=== PATIENT | female | born 1950 | race Caucasian/White ===

== ENCOUNTER 2017-02-04 09:26 | Day surgery (SDC) | payer MEDICARE, OTHER ==
[~2017-02-04 09:26] MED LIST: RINGER'S SOLUTION,LACTATED 1,000 ML IV PRN; ceFAZolin SODIUM 1 GM VIAL IV PRN
[2017-02-04] MEDS ORDERED: RINGER'S SOLUTION,LACTATED 1,000 ML IV ONE (10:45)
--- NOTE | 2017-02-04 12:25 | OR ---
Operative Report - Dictated Report Narrative: Date: 02/04/2017 Surgeon: Abel Sanchez M.D. Automatic Packer Operator: Bobby Billingsley PA-C Anesthesia: General plus regional Preoperative diagnosis: Right ankle medial malleolus fracture. Postoperative diagnosis: Right ankle medial malleolus fracture. Procedure: 1. Open reduction internal fixation right ankle medial malleolus fracture. 2. Intra-operative interpretation of radiographs. Estimated blood loss: None Tourniquet time: 68 Minutes at 300 millimeters mercury Retained implants: [employer] 4.0 mm cannulated partially threaded cancellus screws in the medial malleolus x 2, [employer] 3.5 mm 4-hole one third tubular plate with associated screws Specimens: None Complications: None Indications: Ursula is a 66-year-old female who fell down a short flight of steps resulting in a injury to the right ankle. They were seen in the emergency department with images obtained revealing the above injury. They were seen in clinic where I discussed treatment options in detail including nonoperative immobilization versus open reduction internal fixation. I recommended fixation as these medial malleolar fractures are intra-articular fractures and hers demonstrated unacceptable articular displacement. The risks, benefits, and treatment options were discussed with the patient and the plan for open reduction internal fixation was made. Risks were reviewed including , blood clots, nerve/tendon/blood vessel injury, malunion, nonunion, failure of implants, prominent implants, arthrosis, persistent pain, need for additional procedures. Procedure: After a timeout, anesthetic consisting of 2 g of Ancef was administered. Gen. followed by a regional anesthetic was induced by the nurse sales and merchandising associate without complication. A bone foam ramp was used to bump the operative leg and a well- padded tourniquet was applied to the operative thigh. The right lower extremity was then pre-scrubbed with chlorhexidine then prepped and draped in a standard sterile fashion. Extremity was exsanguinated and tourniquet was inflated. Initial attention was turned to the medial malleolus. A longitudinal incision curving distally was made over the anterior medial aspect of the distal tibia approximately 10 cm in length. Care was taken to protect the saphenous vein and nerve. The medial malleolus fracture was identified and the soft tissues elevated off the bony edges. Hematoma was evacuated from the joint and fracture site. The fracture was booked open and debrided of all soft tissue with a pituitary rongeur. The joint was visualized and there appeared to be no chondral damage to the talus or to the anteromedial shoulder of the tibial plafond. The joint was thoroughly irrigated. Preliminary fixation with a reduction clamp was placed across the fracture of the medial malleolus. Two parallel 1.6 mm guidewires were placed perpendicular to the fracture and parallel to the joint line in the anterior and posterior aspects of the medial malleolar fragment. These were measured, drilled and sequentially placed two 4.0 mm partially-threaded cancellous screws. Given the vertical nature of the fracture we then turned our attention to placing a buttress plate to resist vertical shearing forces at the fracture site. A 4 hole one third tubular plate was chosen. This was placed under direct visualization so as to have our distal-most screw at the axilla of the fracture. 3 screws proximally were placed sucking the plate down to the bone and providing compression at the proximal aspect of the fracture. Position of our implants and length of our screws were all confirmed via mini C-arm. We were happy with our fixation at this point and the ankle was taken through a range of motion and had no significant crepitance. The syndesmosis was stressed and was noted to be stable. The mortise was symmetrical and intact. Final fluoroscopic images were taken. The wounds were then thoroughly irrigated. Subcutaneous tissue was repaired over the implants utilizing 3-0 Vicryl. The skin was closed utilizing interrupted 3-0 nylon. Xeroform, 4 x 4's, soft roll, and a well-padded AO splint was applied. Patient was then awoken and transferred to postanesthesia care in stable condition. All sponge, sharp, and instrument counts were correct prior to closing the wounds.
--- NOTE | 2017-02-04 12:26 | OR ---
Anesthesia Procedure Note - Anesthesia Procedure Note Date of Service: 02/04/17 Narrative: Vital Signs - Last Taken Temp 37.2 C 02/04/17 12:10 Pulse 102 H 02/04/17 12:20 Resp 18 02/04/17 12:20 BP 138/61 02/04/17 12:20 Pulse Ox 99 02/04/17 12:20 O2 Oxygen Delivery Method Nasal Cannula 02/04/17 12:25 ANESTHESIA PROCEDURE NOTE Date of Procedure: 02/04/2017 Time of procedure: 10:20 AM. Performed by: DARNELL Marmolejo CRNA, MSN Edi Programmer Analyst: Saadia Nunez RN. Preprocedure diagnosis: Post right ankle surgery pain relief. Post procedure diagnosis: Same. Procedure: Right Sciatic nerve block superior to the popliteal fossa . Indications: Post ankle surgery pain relief. Findings: See below. Details of the procedure: The patient was brought to OR #2 and placed in supine position. The patient's right leg was elevated and the popliteal posterior and lateral distal femoral area was prepped with chlorhexidine and using ultrasound guidance the great popliteal and tibial nerves were identified and followed proximally until the nerves merged then lidocaine 1% was infiltrated to the skin of the anterolateral thigh at the intended injection site. Under ultrasound guidance the sciatic nerve was approached until a leg/foot response was identified on nerve stimulator. Once the stimulator response was effective at less than 0.5 mV and greater than 0.3 mV the sciatic nerve was surrounded with 30 mL bupivacaine 0.5% with 1-200,000 epinephrine. Please see radiology/ ultrasound report for details and images of the procedure. EBL: 0 Fluids: N/A. Specimen: N/A. Post procedure condition: The patient tolerated the procedure well. No complications were noted. Thank you for this consultation. Jerry Madison CRNA, HISTOPATH TECH, MSN
[2017-02-04] MEDS ORDERED: RINGER'S SOLUTION,LACTATED 1,000 ML IV PRN (12:49)
[2017-02-04] MEDS ORDERED: oxyCODONE HCL/ACETAMINOPHEN 1 TAB TABLET PO PRN (12:50)
[2017-02-04] MEDS ORDERED: HYDROmorphone HCL 2 MG/ML VIAL IV PRN (12:51)
[2017-02-04 14:32] VITALS: BP 139/72
== END 2017-02-04 09:27 | disposition home or self-care (01) ==
LOC: AMB 09:26
PROVIDERS: ATTEND Orthopaedic Surgery
PROC: 3E0T3BZ Introduction of Anesthetic Agent into Peripheral Nerves and Plexi, Percutaneous Approach (ICD-10-PCS; 2017-02-04)
PROC: 0QSG04Z Reposition Right Tibia with Internal Fixation Device, Open Approach (ICD-10-PCS; principal; 2017-02-04 10:45)
DX: S82.51XA Displaced fracture of medial malleolus of right tibia, initial encounter for closed fracture (principal); E03.9 Hypothyroidism, unspecified; E78.5 Hyperlipidemia, unspecified; K21.9 Gastro-esophageal reflux disease without esophagitis; D64.9 Anemia, unspecified; E55.9 Vitamin D deficiency, unspecified; F32.9 Major depressive disorder, single episode, unspecified; W10.9XXA Fall (on) (from) unspecified stairs and steps, initial encounter; Z68.29 Body mass index [BMI] 29.0-29.9, adult